=== PATIENT | female | born 1960 | race Caucasian/White ===

== ENCOUNTER → 2017-11-14 | Outpatient (CLI) | payer OTHER | LOC: FIMAGING 10:20 | PROVIDERS: ATTEND Family Medicine | DX: Z12.31 Encounter for screening mammogram for malignant neoplasm of breast (principal); Z80.3 Family history of malignant neoplasm of breast | CPT/HCPCS: G0202 ==

== ENCOUNTER 2018-12-30 11:29 | Day surgery (SDC) | payer OTHER ==
[2018-12-30] MEDS ORDERED: DIAZEPAM 5 MG TAB PO ONE (11:33)
[2018-12-30] MEDS ORDERED: diphenhydrAMINE 25 MG CAP PO ONE (11:33)
[2018-12-30] MEDS ORDERED: NS 1,000 ML IV ONE (11:33)
[2018-12-30] MEDS ORDERED: FAMOTIDINE 20 MG TAB PO ONE (11:33)
[2018-12-30] MEDS ORDERED: ASPIRIN EC 325 MG TAB PO ONE (11:33)
[2018-12-30 12:16] LABS: PLATELET COUNT 159 10^3/uL (150-400)
[2018-12-30 12:26] LABS: INR 1.09 (0.83-1.16); PROTIME(PATIENT) 14.3 SEC (12.0-15.0)
[2018-12-30] MEDS ORDERED: LIDOCAINE 1% 300 MG/30 ML SDV ONE (12:31)
[2018-12-30] MEDS ORDERED: fentaNYL 100 MCG/2 ML INJ ONE (12:32)
[2018-12-30] MEDS ORDERED: MIDAZOLAM 2 MG/2 ML VIAL ONE (12:32)
[2018-12-30] MEDS ORDERED: fentaNYL 100 MCG/2 ML INJ IVP ONE (13:01)
[2018-12-30] MEDS ORDERED: MIDAZOLAM 2 MG/2 ML VIAL IVP ONE (13:01)
[2018-12-30] MEDS ORDERED: BENZOCAINE UNIT DOSE SPRAY HURRICAINE MM ONE (13:01)
[2018-12-30] MEDS ORDERED: ATROPINE SULFATE 1 MG/10 ML SYR ONE (13:14)
--- NOTE | 2018-12-30 13:16 | PDPROPOC ---
Sedation Plan of Care Sedation Plan of Care: vital signs stable, mental status noted, patient educated of risks, benefits, alternatives, patient can tolerate sedation ASA Classification: ASA 2 Planned drugs: fentanyl, midazolam Mallampati Score: Class 1 Mallampati Reference Image: Patient passed 3-3-2 rule?: Yes
--- NOTE | 2018-12-30 13:16 | PDHPUP ---
History & Physical Update H&P update statement: This history and physical update is based on an assessment of the patient which was completed after admission or registration (within 24 hours), but prior to the surgery/procedure. H&P update: H&P reviewed & patient examined, no change in patient's condition since H&P completed
[2018-12-30] MEDS ORDERED: IOPAMIDOL (ISOVUE-370) 150 ML BTL IV ONE (13:19)
[2018-12-30] MEDS ORDERED: VERAPAMIL 5 MG/2 ML VIAL ONE (13:54)
[2018-12-30] MEDS ORDERED: HEPARIN 10,000 UNIT/10 ML MDV (1,000 UNIT/ML) ONE ×2 (13:54→14:03)
--- NOTE | 2018-12-30 14:36 | PDDXCAT ---
Diagnostic Cath Note - . Date: 12/30/18 Pole Shaver: Chance Indication: other (Evaluation for ASD closure) - Procedure Access: right wrist Procedure: left heart catheterization, coronary angiography, left ventriculogram - Materials Left Heart Cath size: 5F Right Heart Cath size: 5F Right Heart Cath materials: PWP catheter - Findings-Left Heart Catheterization LM: Unobstructed LAD: Unobstructed LCX: Unobstructed RCA: Dominant: Unobstructed EDP: 15 mm of mercury LVEF: 65% Wall motion: None - Findings-Right Heart Catheterization RA: 10 mm of mercury RV: 38/5 mm of mercury PA: 38/10 mm of mercury mean of 22 PAOP: 10 mm of mercury CO: 6.99 liters/minute Complications: None Estimated blood loss: <50ml Closure method: TR Band Assessment: Secundum atrial septal defect. Step-up within the right atrium. QP QS 1-1. Angiographically normal coronary arteries. Normal right heart hemodynamics. Normal left ventricular systolic function. Right atrial enlargement. Plan: Clinical follow-up
--- NOTE | 2018-12-30 14:42 | ECHO ---
[email or web address] [address] [address] Main: [phone] Fax: Transesophageal Echocardiography Name: MARLA DIAZ MR#: [id number] Study Date: 12/30/2018 Study Time: 12:48 PM Date of : 1960 Age: 58 year(s) Height: ( ) Weight: ( ) BSA: Gender: Female Examination: OLMAN Indication: Atrial Septal Defect Image Quality: Adequate Contrast: Requested by: Janes Fletcher Heart Rate: Rhythm: BP: / Procedure Staff Outbound Supervisor: Isa Ta RDCS Reading Physician: Janes Fletcher MD Requesting Provider: OLMAN Exam Details Patient Consent: Risks, alternatives of procedure explained to patient, informed consent obtained. Conclusions: Secundum atrial septal defect. Right atrial enlargement. Normal right ventricular systolic function. Measurements: Chambers Valvular Assessment AV/MV Valvular Assessment TV/PV Normal Normal Normal Name Value Range Name Value Range Name Value Range Additional Measurements: Findings: Left Ventricle: Normal size left ventricle. Normal global systolic LV function. Right Ventricle: Normal size right ventricle. Left Atrium: There is a large atrial septal defect visualized with color doppler and 3D imaging. Left Atrial Appendage: No thrombus in left appendage. Right Atrium: Right atrial enlargement. Mitral Valve: Patient: MARLA DIAZ Study Date: 12/30/2018 Page 1 of 2 12:48 PM The mitral valve is normal in appearance and function. Mild mitral valve regurgitation is present. No mitral stenosis is present. Aortic Valve: The aortic valve is tri-leaflet. There is no significant aortic valve regurgitation. No aortic valve stenosis is present. Tricuspid Valve: The tricuspid valve appears normal. Mild tricuspid regurgitation is present. Pulmonic Valve: The pulmonic valve is normal in appearance and function. Pericardium: No pericardial effusion. l1n (No Signature Object) Patient: MARLA DIAZ Study Date: 12/30/2018 Page 2 of 2 12:48 PM [id number]
--- NOTE | 2019-01-01 16:39 | CPEKG ---
Test Reason : OPEN Blood Pressure : / mmHG Vent. Rate : 047 BPM Atrial Rate : 047 BPM P-R Int : 167 ms QRS Dur : 112 ms QT Int : 462 ms P-R-T Axes : 038 045 030 degrees QTc Int : 409 ms Sinus bradycardia Atrial premature complexes in couplets Confirmed by Jackson Cui ([id number]) on 01/01/2019 4:38:49 PM Referred By: DANISHA TERESA Confirmed By:Jackson Cui
== END 2018-12-30 17:44 | disposition home or self-care (01) ==
LOC: FCATH 11:29
PROVIDERS: ATTEND Internal Medicine Interventional Cardiology
DX: Q21.1 Atrial septal defect (principal); I48.91 Unspecified atrial fibrillation; I51.7 Cardiomegaly; E03.9 Hypothyroidism, unspecified; M17.10 Unilateral primary osteoarthritis, unspecified knee; Z79.01 Long term (current) use of anticoagulants; Z79.82 Long term (current) use of aspirin; Z82.49 Family history of ischemic heart disease and other diseases of the circulatory system
CPT/HCPCS: 93005; 93312; 93460; C1769; J0461; J1644; J2250; J3010; Q9967

== ENCOUNTER 2019-02-26 07:03 | Inpatient (IN) | payer OTHER ==
[~2019-02-26 07:03] MED LIST: ADENOSINE 6 MG/2 ML VIAL ONE; ALBUMIN 5% 250 ML BOTTLE IV ONE; AMINOCAPROIC ACID 5 GM/20 ML VIAL IV ONE; AMINOCAPROIC ACID 5 GM/20 ML VIAL ONE; AMIODARONE HCL 150 MG/3 ML VIAL ONE; CALCIUM CHLORIDE 1 GM/10 ML INJ ONE; CARDIOPLEGIC SOLUTION 1,052.8 ML PF ONE; CITRATE DEXTROSE SOLN 500 ML BAG MISC ONE; CITRATE DEXTROSE SOLN 500 ML BAG ONE; DOPamine/DEXTROSE 400 MG/250 ML BAG IV ONE; HEPARIN 10,000 UNIT/10 ML MDV (1,000 UNIT/ML) ONE; INSULIN REGULAR HUMAN 100 UNIT in NS 100 ML IV ONE; LIDOCAINE 1% 2 ML INJ ID PRN; LIDOCAINE 2% 100 MG/5 ML SYR ONE; MAGNESIUM SULFATE 1 GM/2 ML VIAL ONE; MANNITOL 25% 12.5 GM/50 ML VIAL IVP ONE; MILRINONE/DEXTROSE/100 ML BAG IV ONE; NA BICARBONATE 50 MEQ/50 ML VIAL ONE; NITROGLYCERIN/D5W 50 MG/250 ML BOTTLE IV ONE; NOREPINEPHRINE BITARTRATE 16 MG in NS 250 ML IV ONE; PHENYLEPHRINE HCL 50 MG in NS 250 ML IV ONE; PROTAMINE SULFATE 50 MG/5 ML VIAL IVP ONE; SODIUM BICARBONATE 50 MEQ/50 ML SYR ONE; ceFAZolin 1 GM VIAL ONE; ceFAZolin 2 GM/DEXTROSE 100 ML IV ONE; methylPREDNISolone SOD SUCC 1 GM/8 ML VIAL ONE; niCARdipine/NACL 200 ML IV ONE; niCARdipine/NACL/200 ML BAG IV ONE
--- NOTE | 2019-02-26 07:39 | PDGENHP ---
History and Physical - Chief Complaint preop closure ASD and ablation Afib - History of Present Illness 58 yo female with an increasing burden of paroxysmal atrial fibrillation assoc with an aneurysmal atrial septum, large secundum ASD not amenable to percutaneous closure, and right sided chamber enlargement without significant valvular insufficiency or PHTN, admitted for elective OHS. Antithrombotic prophylaxis with Eliquis and Lovenox bridge stopped appropriately. Except for a dry, nagging, cough over the past couple weeks, she has been feeling well. No F/C, malaise, headaches, pharyngitis, nasal congestion/drainage , wt gain, edema, CP, orthopnea, breathlessness, decline in stamina, or presyncope. History Information - Allergies/Home Medication List Allergies/Adverse Reactions: No Known Allergies Allergy (Verified 02/26/19 07:51) Home Medications: Apixaban [Eliquis] 5 mg PO BID 12/23/18 [Last Taken 02/21/19] Cholecalciferol Vit D3 [Vitamin D3 (*)] 1,000 units PO DAILY 12/23/18 [Last Taken 02/21/19] Levothyroxine [Synthroid 125 mcg (*)] 125 mcg PO DAILY06 12/23/18 [Last Taken ] C/E/Zn/Cu/OM3/DHA/EPA/LUT/ZEAX [Preservision Areds 2 Softgel] 1 each PO DAILY [Last Taken 02/21/19] Herbals/Supplements -Info Only 1 ea PO DAILY 02/03/19 [Last Taken 02/21/19] I have personally reviewed and updated: family history, medical history, social history, surgical history - Past Medical History atrial fibrillation (palpitations since Jun 2018; no sustained RVR, underlying rhythm SB, and not on rate control meds) Additional medical history: hypothyroidism - Surgical History Reports: no pertinent surgical hx - Family History Positive for: diabetes type II, CAD Additional family history: sister and father w ASDs, father is s/p repair - Social History Smoking Status: Never smoked Review of Systems Review of Systems: ROS: 10pt was reviewed & negative except for what was stated in HPI & below Cardiac: Reports: irregular heart rate (only perceivable at rest) Gastrointestinal: Reports: other (BM this am) Muscolosketal: Reports: other (endorses "cankles") Physical Exam Physical Exam: Constitutional: no apparent distress, obese, other (delightful) Eyes: anicteric sclera Ears, Nose, Mouth, Throat: moist mucous membranes, hearing normal, other (no visible dental disrepair) Cardiovascular: regular rate and rhythym, pulses symmetric bilaterally, other ( no edema) Peripheral Pulses: 2+: dorsalis-pedis (R), dorsalis-pedis (L) Respiratory: no respiratory distress, clear to auscultation Gastrointestinal: soft, non-tender abdomen Skin: warm, normal color, no rashes or abrasions Psychiatric: interacting appropriately Lab Data & Imaging Review Patient ABO/Rh O POSITIVE 02/24/19 16:05 Antibody Screen NEGATIVE 02/24/19 16:05 H/H 13/40, Plt 162 (baseline 150-200), Cr 0.8, HgbA1c 5.4% Imaging Review: LHC, TTE, OLMAN results Visualized and Interpreted EKG results: Yes EKG Interpretation: Positive for: normal sinsus rhythm (bradycardia) Assessment & Plan Assessment: PAF (paroxysmal atrial fibrillation) (Chronic) Chronic anticoagulation (Chronic) Secundum ASD (Chronic) RA and RV dilatation Mild MR Mild TR Plan: Pericardial patch closure of ASD Bauman-Maze IV Consents per Dr Jimenez
[2019-02-26] MEDS ORDERED: LR 1,000 ML IV ONE (07:46)
[2019-02-26] MEDS ORDERED: MINERAL OIL 10 ML VIAL ONE (08:15)
[2019-02-26] MEDS ORDERED: MIDAZOLAM 2 MG/2 ML VIAL IVP ONE (08:31)
--- NOTE | 2019-02-26 08:31 | PDANEPAE ---
ANE History of Present Illness 58 yo for asd repair / maze ANE Past Medical History - Cardiovascular History Hx Hypertension: No Hx Arrhythmias: Yes Hx Chest Pain: No Hx Coronary Artery / Peripheral Vascular Disease: No Hx CHF / Valvular Disease: No Hx Palpitations: No Cardiovascular History Comment: Afib. left leg vericos vein ligation 2003 - Pulmonary History Hx COPD: No Hx Asthma/Reactive Airway Disease: Yes Hx Recent Upper Respiratory Infection: No Hx Oxygen in Use at Home: No Hx Sleep Apnea: No Sleep Apnea Screening Result - Last Documented: Negative Pulmonary History Comment: asthma as child - Neurologic History Hx Cerebrovascular Accident: No Hx Seizures: No Hx Dementia: No - Endocrine History Hx Diabetes: No - Renal History Hx Renal Disorders: No - Liver History Hx Hepatic Disorders: No - Neurological & Psychiatric Hx Hx Neurological and Psychiatric Disorders: No - Cancer History Hx Cancer: No - Congenital Disorder History Hx Congenital Disorders: Yes Congenital History Comment: ASD in father - GI History Hx Gastrointestinal Disorders: No - Other Health History Other Health History: none - Chronic Pain History Chronic Pain: No - Surgical History Prior Surgeries: cardiac cath last month ANE Review of Systems Review of Systems: - Exercise capacity METS (RN): 5 METS ANE Patient History - Allergies Allergies/Adverse Reactions: No Known Allergies Allergy (Verified 02/26/19 07:51) - Home Medications Home medications: home medication list seen and reviewed Home Medications: Apixaban [Eliquis] 5 mg PO BID 12/23/18 [Last Taken 02/21/19] Cholecalciferol Vit D3 [Vitamin D3 (*)] 1,000 units PO DAILY 12/23/18 [Last Taken 02/21/19] Levothyroxine [Synthroid 125 mcg (*)] 125 mcg PO DAILY06 12/23/18 [Last Taken ] C/E/Zn/Cu/OM3/DHA/EPA/LUT/ZEAX [Preservision Areds 2 Softgel] 1 each PO DAILY [Last Taken 02/21/19] Herbals/Supplements -Info Only 1 ea PO DAILY 02/03/19 [Last Taken 02/21/19] - NPO status NPO Status: no food or drink >8 hours NPO Since - Liquids (Date): 02/26/19 NPO Since - Liquids (Time): 05:30 NPO Since - Solids (Date): 02/25/19 NPO Since - Solids (Time): 21:00 - Smoking Hx Smoking Status: Never smoked - Family Anes Hx Family Hx Anesthesia Complications: none ANE Labs/Vital Signs - Vital Signs Blood Pressure: 121/75 Heart Rate: 55 Respiratory Rate: 16 O2 Sat (%): 97 Height: 5 ft 7 in Weight: 72.575 kg ANE Physical Exam - Airway Neck exam: FROM Mallampati Score: Class 2 Mouth exam: normal dental/mouth exam - Pulmonary Pulmonary: no respiratory distress - Cardiovascular Cardiovascular: regular rate and rhythym - ASA Status ASA Status: III ANE Anesthesia Plan Anesthesia Plan: general endotracheal anesthesia Lines/Monitors: arterial line, central line, OLMAN
[2019-02-26] MEDS: MUPIROCIN 2% 22 GM OINT NS SCH ×3 (08:35→21:04)
[2019-02-26] MEDS ORDERED: fentaNYL 100 MCG/2 ML INJ ONE (08:43)
[2019-02-26] MEDS ORDERED: REMIFENTANIL HCL 1 MG VIAL ONE (08:43)
[2019-02-26] MEDS ORDERED: PROPOFOL/EMULSION 500 MG/50 ML BOTTLE IV ONE (08:43)
[2019-02-26] MEDS ORDERED: ROCURONIUM 100 MG/10 ML VIAL ONE (08:43)
[2019-02-26] MEDS ORDERED: DEXMEDETOMIDINE HCL 400 MCG in NS 100 ML IV SCH (09:00)
[2019-02-26] MEDS ORDERED: SUGAMMADEX SODIUM 200 MG/2 ML VIAL IVP ONE (10:19)
[2019-02-26] MEDS ORDERED: ONDANSETRON 4 MG/2 ML VIAL ONE (10:19)
[2019-02-26] MEDS ORDERED: KETOROLAC 30 MG/1 ML SDV ONE (11:30)
[2019-02-26] MEDS ORDERED: PHENYLEPHRINE HCL 100 MCG/ML SYR ONE (11:44)
[2019-02-26] MEDS ORDERED: ALBUMIN 5% 250 ML BOTTLE IV ONE (11:53)
[2019-02-26] MEDS ORDERED: ACETAMINOPHEN 650 MG SUPP PR PRN (12:14)
[2019-02-26] MEDS ORDERED: niCARdipine/NACL 200 ML IV PRN (12:14)
[2019-02-26] MEDS ORDERED: SODIUM CL NASAL 45 ML BTL EACHNARE PRN (12:14)
[2019-02-26] MEDS ORDERED: PANTOPRAZOLE SODIUM 40 MG VIAL IVP ONE (12:14)
[2019-02-26] MEDS ORDERED: POLYETHYLENE GLYCOL 3350 17 GM PKT PO PRN (12:14)
[2019-02-26] MEDS ORDERED: LACTULOSE 20 GM/30 ML UDCUP PO PRN (12:14)
[2019-02-26] MEDS ORDERED: MEPERIDINE 25 MG/0.5 ML AMP IVP PRN (12:14)
[2019-02-26] MEDS ORDERED: fentaNYL 100 MCG/2 ML INJ IVP PRN (12:14)
[2019-02-26] MEDS ORDERED: CEPACOL LOZENGE PO PRN (12:14)
[2019-02-26] MEDS ORDERED: D50W 25 GM/50 ML SYR IVP PRN (12:14)
[2019-02-26] MEDS ORDERED: MAGNESIUM HYDROXIDE 30 ML UDCUP PO PRN (12:14)
[2019-02-26] MEDS ORDERED: POTASSIUM Cl (KCl) 50 ML IV PRN (12:14)
[2019-02-26] MEDS ORDERED: BISACODYL 10 MG SUPP PR PRN (12:14)
[2019-02-26] MEDS ORDERED: NS 1,000 ML IV SCH (12:15)
[2019-02-26] MEDS ORDERED: INSULIN REGULAR HUMAN 100 UNIT in NS 100 ML IV SCH (12:30)
--- NOTE | 2019-02-26 12:58 | PDMN ---
Medical Necessity Medical necessity: Pt meets inpt criteria per MD order and [facility], Cardiac Septal Defect: Atrial, Repair, [facility] IP only list, 3 days. 58 y/o w/PAF, secundum ASD, RA and RV dilatation, mild MR, and mild TR, op: primary closure of ASD and Bauman-Maze IV, ICU, post-op care. Anticipate>2MN for ongoing treatment of above.
[2019-02-26] MEDS: ALBUMIN 5% 250 ML IV PRN ×2 (13:44→13:53)
[2019-02-26] MEDS ORDERED: traMADol 50 MG TAB PO PRN (14:00)
[2019-02-26] MEDS ORDERED: CALCIUM CHLORIDE 1 GM/10 ML INJ IV ONE (14:30)
[2019-02-26] MEDS ORDERED: ALBUMIN 5% 250 ML IV ONE ×2 (14:30→15:30)
[2019-02-26] MEDS ORDERED: DOPamine/DEXTROSE 400 MG/250 ML BAG IV ONE (14:38)
[2019-02-26] MEDS: ceFAZolin 2 GM/DEXTROSE 100 ML IV SCH ×2 (15:00→21:48)
[2019-02-26] MEDS ORDERED: SODIUM BICARBONATE 50 MEQ/50 ML SYR ONE ×2 (15:12→18:18)
--- NOTE | 2019-02-26 15:22 | GOP ---
[f rep st] OPERATIVE REPORT DATE OF OPERATION: 02/26/2019 SURGEON: Salomon Jimenez DO SPEED BELT SANDER: Delon. ANESTHESIOLOGIST: Dr. Winston. PREOPERATIVE DIAGNOSIS: 1. Atrial septal defect. 2. Longstanding persistent atrial fibrillation. POSTOPERATIVE DIAGNOSIS: 1. Atrial septal defect. 2. Longstanding persistent atrial fibrillation. PROCEDURE PERFORMED: 1. Primary closure of atrial septal defect. 2. Bauman-Maze IV with sensing and testing with radiofrequency and cryo. FINDINGS: DESCRIPTION OF PROCEDURE: Patient was brought to the operating room, intubated and monitoring lines were placed. She was prepped and draped in sterile classical manner. Sternotomy was performed. She was heparinized, cannulated with bicaval cannulae and tapes. We then encircled the right pulmonary vein and performed a radiofrequency ablation with multiple overlapping lines with the last of each se t being less than 5 seconds. We then performed testing to make sure we had entrance and exit block, which was confirmed. We then went on bypass and encircled the left pulmonary vein venous system afte r taking down the ligamentum. I performed 3 overlapping lines in a standard fashion in the antrum wi th pre- and postprocedural testing, which confirmed entrance and exit block, which was not present pr ior to ablation. We then marked the terminus of the left and right coronary systems for cryo across the coronary sinus. We then arrested the heart with antegrade cardioplegia utilizing Del Nido protoc ol. I then opened the tip of the left atrial appendage and performed multiple ablations across the C oumadin ridge into the left superior pulmonary vein to avoid left atrial flutter. A 35 mm atrial cli p was placed across the base of the left atrial appendage, avoiding the circumflex. We then exposed the inner atrial groove on the right side. Opened the left atrium and performed the roof and floor l esions with multiple overlapping ablation lines on the roof and floor lesions connecting with the lef t superior pulmonary vein. We then performed cryoablation externally and internally overlapping thos e lesion sets for 2 minutes each with ice ball noted to form on the inside, extending it across the m itral valve anulus into the isthmus. The left atrium was then closed in standard fashion. Rewarming was begun. We then performed an inferior vertical atriotomy, avoiding the atrial pacing area of the right atrium and performed a superior and inferior vena cava line with radiofrequency extending as f ar inferiorly and superiorly as we could. We then performed the free wall line with radiofrequency a nd the isthmus line after removing the cross-clamp at the end of the procedure. Prior to that, kleber carver I closed the ASD with a continuous running overlapping 4-0 prolene suture in 2 layers. We then r emoved the cross-clamp and in Trendelenburg with suction on the ascending aortic vent performed the i sthmus lesion in the right atrium at 2 o'clock. The right atrium was then closed in a 2-layer fashio n. We spent some time in Trendelenburg, de-airing the patient through the LV apex and the ascending aorta. When no further air was identified, she was easily weaned from bypass. The ASD was confirmed closed on OLMAN. The cannula was removed and oversewn. Two ventricular pacing wires and 2 mediastina l drains were placed. The thymic fat and pericardium were closed. Chest was closed in standard fash ion. Patient was returned to ICU in stable condition. /[id number]/MODL
[2019-02-26] MEDS ORDERED: SODIUM BICARBONATE 50 MEQ/50 ML SYR IV ONE ×2 (15:30→18:30)
--- NOTE | 2019-02-26 16:27 | GCON ---
[f rep st] CONSULTATION PULMONARY/CRITICAL CARE CONSULTATION DATE OF CONSULTATION: 02/26/2019 REFERRING PHYSICIAN: Salomon Jimenez DO REASON FOR REFERRAL: Evaluation and management of hypotension and anemia. HISTORY OF PRESENT ILLNESS: The patient is a 58-year-old woman with a history of paroxysmal atrial f ibrillation with increasing burden recently. She also has a large 2nd ASD that was not amenable to p ercutaneous closure and right-sided chamber enlargement. She is admitted for a Bauman-Maze IV procedure and ASD closure. Her intraoperative course was unremarkable. She was extubated prior to arriving i n the intensive care unit. She reports fairly good pain control but is still quite weak. She has no t taken p.o. or sitting in a chair. PAST MEDICAL HISTORY: Atrial fibrillation. MEDICATIONS: At the time of admission include: Eliquis, Synthroid. ALLERGIES: None. SOCIAL HISTORY: The patient has never smoked. FAMILY HISTORY: Positive for ASDs. REVIEW OF SYSTEMS: A 10-point review of systems adds nothing to the history of present illness. PHYSICAL EXAMINATION: GENERAL: The patient is somnolent but arousable. VITAL SIGNS: Her blood pre ssure is 84/46 with a heart rate of 63. She is afebrile. Oxygen saturations are 100% on 2 L. HEENT : Normocephalic and atraumatic. No icterus. NECK: No JVD. Trachea is midline. CHEST: She is st atus post sternotomy. LUNGS: Clear. CARDIAC: Regular rate and rhythm without murmur. ABDOMEN: S oft, nontender. Bowel sounds are present. EXTREMITIES: No clubbing, cyanosis, or edema. LABORATORY: Hemoglobin 10.5, down from 13.9 preoperatively. A chemistry group shows a potassium of 5.4, up from 3.9 preoperatively. Glucose is 126. Blood gas shows a pH of 7.25 with a pO2 of 128, a CO2 of 48, and a bicarbonate of 22. A chest x-ray shows no acute pulmonary findings, an appropriatel y placed central line and chest tubes. Images reviewed by me. ASSESSMENT: 1. Status post Bauman-Maze IV procedure with atrial septal defect repair. The patient is currently in sinus rhythm, not requiring pacemaker. 2. Hypotension. The patient has hypotension postoperatively. This is likely due to the patient's p legia. She is currently on dopamine at 2 mcg/kg per minute to maintain adequate pressure. 3. Anemia. The patient has anemia likely due to acute blood loss as well as some dilution. Her hem oglobins have been stable the last 2 checks. 4. Hyperkalemia. This is likely due to acidosis. She is not having any arrhythmias currently. 5. Respiratory acidosis. This is likely due to the post anesthesia state. Her CO2 has come down ju st a bit since it was checked earlier today. She is arousable with minimal oxygen needs. RECOMMENDATIONS: 1. Recheck potassium. I expect this will come down as her respiratory status and acidosis improve. 2. Follow telemetry for signs of hyperkalemia. 3. Follow hemoglobin level. 4. Wean dopamine off as tolerated. /[id number]/MODL
--- NOTE | 2019-02-26 16:46 | CPEKG ---
Test Reason : OPEN Blood Pressure : / mmHG Vent. Rate : 074 BPM Atrial Rate : 074 BPM P-R Int : 177 ms QRS Dur : 095 ms QT Int : 420 ms P-R-T Axes : 086 073 077 degrees QTc Int : [address] depression anterior-lateral leads. Confirmed by Marqusie Rangel ([id number]) on 02/26/2019 4:45:53 PM Referred By: Salomon Jimenez Confirmed By:Marquise Rangel
[2019-02-26] MEDS: KETOROLAC 15 MG/1 ML SDV IVP SCH ×2 (18:14→23:59)
[2019-02-26] MEDS ORDERED: ALBUMIN 5% 500 ML BOTTLE IV ONE (18:20)
[2019-02-26] MEDS ORDERED: ALBUMIN 5% 500 ML IV ONE (18:30)
[2019-02-26] MEDS: ONDANSETRON 4 MG/2 ML VIAL IVP PRN (20:42)
[2019-02-26] MEDS: METOCLOPRAMIDE 10 MG/2 ML VIAL IVP PRN (21:12)
[2019-02-27] MEDS: HYDROCODONE/APAP 5/325 TAB PO PRN ×3 (04:04→21:09)
[2019-02-27] MEDS: ONDANSETRON 4 MG/2 ML VIAL IVP PRN (04:05)
[2019-02-27 04:52] LABS: PLATELET COUNT 94 10^3/uL (150-400)
[2019-02-27 05:16] LABS: INR 1.31 (0.83-1.16); PROTIME(PATIENT) 15.7 SEC (12.0-15.0)
[2019-02-27] MEDS: HEPARIN 5,000 UNIT/0.5 ML INJ SC SCH ×3 (05:34→22:16)
[2019-02-27] MEDS: KETOROLAC 15 MG/1 ML SDV IVP SCH ×3 (05:42→18:12)
[2019-02-27] MEDS: LEVOTHYROXINE 125 MCG TAB PO SCH (05:43)
[2019-02-27] MEDS: ceFAZolin 2 GM/DEXTROSE 100 ML IV SCH ×3 (05:44→21:10)
--- NOTE | 2019-02-27 06:53 | SOAPPROG ---
SOAP Progress Note Assessment/Plan: POD #1: primary closure of atrial septal defect, Bauman-Maze IV with AtriClip exclusion of MAHI Atrial septal defect s/p primary closure - Limited TTE to r/o pericardial effusion/evaluate LV (hypotension) - CTs to bulb suction, FC to be removal, AL to remain as Dopamine is weaned off Long-standing persistent paroxysmal atrial fibrillation - Post-op JR, 60-70 - Thromboprophylaxis with Coumadin, INR goal 2-3, duration 3-6 months pending stability of sinus rhythm Acute blood loss anemia - Stable without the need for transfusions DVT prophylaxis - Heparin SQ/SCDs Disposition - ICU status until BP stabilizes Subjective: Pain well-controlled, denies SOB. Objective: Vital Signs Temp Pulse Resp BP Pulse Ox 36.1 C 67 20 95/44 L 97 02/26/19 20:00 02/27/19 06:00 02/27/19 06:00 02/27/19 06:00 02/27/19 06:00 Laboratory Results 02/27/19 04:15 02/27/19 04:15 02/26/19 02/27/19 02/28/19 05:59 05:59 05:59 Intake Total 3620 Output Total 2113 Balance 1507 PT 15.7 SEC (12.0-15.0) H 02/27/19 04:15 INR 1.31 (0.83-1.16) H 02/27/19 04:15 Physical Exam - Physical Exam General Appearance: WD/WN, alert, no apparent distress EENT: No scleral icterus (R), No scleral icterus (L) Neck: normal inspection Respiratory: No respiratory distress Cardiac/Chest: other (JR) Abdomen: non-tender, soft, No distended Skin: normal color, warm/dry Extremities: pedal edema (chronic) Neuro/Psych: no motor/sensory deficits, alert, normal mood/affect, oriented x 3 ICD10 Worksheet Patient Problems: Problems Problem Status Onset Acute blood loss anemia Acute S/P ablation of atrial fibrillation Acute ~02/26/19 s/p primary closure of ASD Acute ~02/26/19 Chronic anticoagulation Chronic PAF (paroxysmal atrial fibrillation) Chronic Secundum ASD Chronic
[2019-02-27] MEDS: PANTOPRAZOLE SODIUM 40 MG TAB PO SCH (09:14)
[2019-02-27] MEDS: MUPIROCIN 2% 22 GM OINT NS SCH ×2 (09:15→21:20)
[2019-02-27] MEDS: ASPIRIN 81 MG CHEWABLE TAB PO SCH (09:15)
--- NOTE | 2019-02-27 11:14 | ASMTCMCOM ---
CM Note CM Note Notes: Patient is POD #1 primary closure of atrial septal defect, Bauman Maze IV. She is normally independent, lives w and has a son nearby. PT/OT ordered. I anticipate an independent discharge, but CM available if this changes. Date Signed: 02/27/2019 11:13 AM Electronically Signed By:Veronica Berry RN
--- NOTE | 2019-02-27 12:29 | CPEKG ---
Test Reason : OPEN Blood Pressure : / mmHG Vent. Rate : 071 BPM Atrial Rate : 000 BPM P-R Int : 148 ms QRS Dur : 081 ms QT Int : 399 ms P-R-T Axes : 095 035 012 degrees QTc Int : 434 ms Normal sinus rhythm Probably first degree AV block. Q waves inferior leads. Confirmed by Marquise Rangel ([id number]) on 02/27/2019 12:28:56 PM Referred By: Salomon Jimenez Confirmed By:Marquise Rangel
--- NOTE | 2019-02-27 14:14 | PDINTPN ---
Employment Supervisor Progress Note Assessment/Plan: Assessment: S/P Bauman-Maze IV and ASD repair 02/26/19 Hypotension: Orthostatic. Persists. On DA @3. Likely due to anesthesia vasoplegia, mild anemia. AF: Now with NSR with paroxysms of AFlutter. Rate OK. Respiratory alkalosis: Resolved. Plan: Continue DA. GIOVANA hose to help with orthostasis. Follow H/H, monitor for AF. Increase activity as tolerated. 02/27/19 14:15 Subjective: Feels okay lying flat. Gets lightheaded when sitting up in a chair or trying to stand. Appetite okay. Pain controlled. Objective: Vital Signs Temp Pulse Resp BP Pulse Ox 37.1 C 65 16 122/56 H 100 02/27/19 13:00 02/27/19 14:00 02/27/19 14:00 02/27/19 14:00 02/27/19 14:00 Laboratory Results 02/27/19 04:15 02/27/19 11:50 02/26/19 02/27/19 02/28/19 05:59 05:59 05:59 Intake Total 3620 Output Total 2113 115 Balance 1507 -115 PT 15.7 SEC (12.0-15.0) H 02/27/19 04:15 INR 1.31 (0.83-1.16) H 02/27/19 04:15 Laboratory Tests 02/26/19 19:51 POC ABG pH 7.34 L POC ABG pCO2 41 H POC ABG pO2 86 H POC ABG Total CO2 24 Physical Exam - Physical Exam General Appearance: alert, no apparent distress EENT: normal ENT inspection Neck: normal inspection Respiratory: lungs clear, normal breath sounds Cardiac/Chest: regular rate, rhythm, No edema Abdomen: non-tender, soft Skin: normal color, warm/dry Extremities: normal inspection Neuro/Psych: alert, normal mood/affect, oriented x 3 ICD10 Worksheet Patient Problems: Problems Problem Status Onset Acute blood loss anemia Acute S/P ablation of atrial fibrillation Acute ~02/26/19 s/p primary closure of ASD Acute ~02/26/19 Chronic anticoagulation Chronic PAF (paroxysmal atrial fibrillation) Chronic Secundum ASD Chronic
[2019-02-27] MEDS: METOCLOPRAMIDE 10 MG/2 ML VIAL IVP PRN (15:36)
[2019-02-27] MEDS: SENNOSIDES/DOCUSATE SODIUM TAB PO SCH (21:09)
[2019-02-28] MEDS: KETOROLAC 15 MG/1 ML SDV IVP SCH ×3 (00:16→11:57)
[2019-02-28] MEDS: HYDROCODONE/APAP 5/325 TAB PO PRN ×4 (01:53→21:18)
[2019-02-28 05:56] LABS: INR 1.21 (0.83-1.16); PROTIME(PATIENT) 14.8 SEC (12.0-15.0)
[2019-02-28] MEDS: LEVOTHYROXINE 125 MCG TAB PO SCH (06:35)
[2019-02-28] MEDS: HEPARIN 5,000 UNIT/0.5 ML INJ SC SCH (06:35)
--- NOTE | 2019-02-28 06:51 | SOAPPROG ---
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 Antithrombotic prophylaxis as per Maze. Non valvular PAF/anticoagulation with Eliquis - Hx underlying bradycardia and not on rate control therapy. Post Maze rhythm junct, SB/SR, and paroxysms of Aflutter w post conversion pauses. ? SSS. Use of antinodals deferred. Consider EP consult if evidence chronotropic incompetence. Antithrombotic prophylaxis with Eliquis. Postoperative orthostatic hypotension - Likely exacerbated by postCPB vasoplegia and hypovolemia. No pericardial effusion identified by bedside echo. Maintained on low dose dopa. Transition to midodrine planned. Acute expected blood loss anemia w thrombocytopenia and mild coagulopathy - Stable. No transfusions required. INR normalizing. Plt count on the rise. VTE prophylaxis with SCDs and Eliquis. Plan: Start midodrine 10 mg TID Wean dopa to SBP > 90 Keep tiff until off dopa Lasix 20 mg IV x 1 Inc mobility PRBC if remains orthostatic Consider removal ant med drain later today Resume Eliquis Possible tx to PCU later today 02/28/19 06:49 Subjective: Comfortable at rest or recumbent. Lightheaded upon standing and has been unable to walk much. Objective: Vital Signs Temp Pulse Resp BP Pulse Ox 36.7 C 62 19 103/52 L 92 02/27/19 15:58 02/28/19 05:00 02/28/19 06:00 02/28/19 06:00 02/28/19 06:00 Laboratory Results 02/28/19 05:30 02/28/19 05:30 02/27/19 02/28/19 03/01/19 05:59 05:59 05:59 Intake Total 3620 2524 Output Total 2113 1035 Balance 1507 1489 PT 14.8 SEC (12.0-15.0) 02/28/19 05:30 INR 1.21 (0.83-1.16) H 02/28/19 05:30 Dopa @ 2.5 mcg. Holding SBP > 90 at rest. HR 60s with bursts of SVT/A flutter. Positive fluid balance. CXR -> tiny left apical PTX, mild left basilar atelectasis. CTOP approaching removal criteria. Platelets rebounding appropriately. Physical Exam - Physical Exam General Appearance: alert, no apparent distress Respiratory: normal breath sounds (excellent insp effort), other (blakes x 2 to bulb suction, serosang drainage) Cardiac/Chest: regular rate, rhythm, other (Sternotomy CDI. Vwires intact.) Abdomen: non-tender, soft Skin: warm/dry Extremities: swelling (trace - 1+ gen) ICD10 Worksheet Patient Problems: Problems Problem Status Onset Acute blood loss anemia Acute S/P ablation of atrial fibrillation Acute ~02/26/19 s/p primary closure of ASD Acute ~02/26/19 Chronic anticoagulation Chronic PAF (paroxysmal atrial fibrillation) Chronic Secundum ASD Chronic
[2019-02-28] MEDS ORDERED: FUROSEMIDE 20 MG/2 ML VIAL IVP ONE (07:48)
[2019-02-28] MEDS: APIXABAN 5 MG TAB PO SCH ×2 (08:18→21:16)
[2019-02-28] MEDS: ASPIRIN 81 MG CHEWABLE TAB PO SCH (08:18)
[2019-02-28] MEDS: MIDODRINE HCL 10 MG TAB PO SCH ×3 (08:18→15:47)
[2019-02-28] MEDS: PANTOPRAZOLE SODIUM 40 MG TAB PO SCH (08:18)
[2019-02-28] MEDS: SENNOSIDES/DOCUSATE SODIUM TAB PO SCH ×2 (08:18→21:17)
--- NOTE | 2019-02-28 09:16 | ECHO ---
[email or web address] [address] [address] Main: [phone] Echocardiography Examination Transthoracic Name: MARLA DIAZ MR#: [id number] Study Date: 02/27/2019 Study Time: 08:28 AM Date of : 1960 Age: 58 year(s) Height: 170.2 cm (67 in.) Weight: 72.58 kg (160 lb.) BSA: 1.84 m2 Gender: Female Examination: Limited Echo Contrast: Image Quality: Adequate Rhythm: Normal sinus rhythm Heart Rate: 63 bpm BP: 73 mmHg/45 mmHg Indication: Acute Hypotension, Post OHS Procedure Staff Referring Physician: Blow Pit Helper: Pierce Paulson RDCS Reading Physician: Jackson Cui MD Requesting Provider: Ordering Physician: Michele Grande Indication: Acute Hypotension, Post OHS Measurements Chambers Label Value Normal Value LVDd, MM 4.6 cm (3.9cm - 5.3cm) LVDs, MM 3.1 cm (2cm - 3.8cm) IVSd, MM 1.4 cm (0.6cm - 0.9cm) LVPWd, MM 1.7 cm (0.6cm - 0.9cm) Conclusions No pericardial effusion was noted. No LV dilation appreciated. Findings Left Ventricle: This is a Stat limited Echo to evaluate for a pericardial effusion, post OHS. From the subcostal view there no evidence of a pericardial effusion. There is normal LV function. Exam Details Procedure Ordered: Limited Echo Procedure Status: Routine study Image Quality: Adequate Patient: MARLA DIAZ Study Date: 02/27/2019 Page 1 of 2 08:28 AM Facility Location: Cardiac Echo 1 (No Signature Object) Patient: MARLA DIAZ Study Date: 02/27/2019 Page 2 of 2 08:28 AM [id number]
[2019-02-28] MEDS: MUPIROCIN 2% 22 GM OINT NS SCH (09:30)
[2019-02-28] MEDS: ONDANSETRON DISINTEGRATING 4 MG TAB PO PRN (13:00)
--- NOTE | 2019-02-28 16:17 | PDINTPN ---
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 Hypotension: Orthostatic. Improved, able to take a walk without dopamine. Likely due to anesthesia vasoplegia, Bauman-Maze, and mild anemia. AF: Now with NSR and signed bradycardia with occasional short pauses. Rate OK. Respiratory alkalosis: Resolved. Anemia: Stable/slightly improved Plan: Continue off DA as tolerated. GIOVANA hose to help with orthostasis. Follow H/ H, monitor for AF. Increase activity as tolerated. 02/28/19 16:17 Subjective: Feels a bit better. She is to call walking feels exhausted but had no presyncope. Pain well controlled. Poor appetite. Objective: Vital Signs Temp Pulse Resp BP Pulse Ox 36.6 C 61 16 91/56 L 97 02/28/19 12:00 02/28/19 14:00 02/28/19 14:00 02/28/19 14:00 02/28/19 14:00 Laboratory Results 02/28/19 05:30 02/28/19 05:30 02/27/19 02/28/19 03/01/19 05:59 05:59 05:59 Intake Total 3620 2524 Output Total 2113 1035 410 Balance 1507 1489 -410 PT 14.8 SEC (12.0-15.0) 02/28/19 05:30 INR 1.21 (0.83-1.16) H 02/28/19 05:30 Physical Exam - Physical Exam General Appearance: alert, no apparent distress EENT: normal ENT inspection Neck: normal inspection Respiratory: lungs clear, normal breath sounds Cardiac/Chest: regular rate, rhythm Abdomen: normal bowel sounds, non-tender, soft Skin: normal color, warm/dry Extremities: non-tender Neuro/Psych: alert, normal mood/affect, oriented x 3 ICD10 Worksheet Patient Problems: Problems Problem Status Onset Acute blood loss anemia Acute S/P ablation of atrial fibrillation Acute ~02/26/19 s/p primary closure of ASD Acute ~02/26/19 Chronic anticoagulation Chronic PAF (paroxysmal atrial fibrillation) Chronic Secundum ASD Chronic
[2019-02-28] MEDS: MELATONIN 3 MG TAB PO SCH (21:16)
[2019-03-01] MEDS: HYDROCODONE/APAP 5/325 TAB PO PRN ×4 (03:05→21:20)
[2019-03-01] MEDS: LEVOTHYROXINE 125 MCG TAB PO SCH (06:07)
--- NOTE | 2019-03-01 07:18 | SOAPPROG ---
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 Antithrombotic prophylaxis as per Maze. Non valvular PAF/anticoagulation with Eliquis - Hx underlying bradycardia and not on rate control therapy. Post Maze rhythm junct, SB/SR, and paroxysms of Aflutter w post conversion pauses. AF prophylaxis with low dose amio in lieu of BB. Antithrombotic prophylaxis with Eliquis. Postoperative orthostatic hypotension - Likely exacerbated by postCPB vasoplegia and hypovolemia. No pericardial effusion identified by bedside echo. Successfully weaned off dopa on midodrine. Care with diuresis. Follow. Acute expected blood loss anemia w thrombocytopenia and mild coagulopathy - Stable. No transfusions required. Plt rebound evident. VTE prophylaxis with SCDs and Eliquis. Plan: Cont midodrine 10 mg TID. Accept SBP > 85. Start amiodarone 200 mg daily. Cont compressive hose during day. Tx 1u PRBC for recurrent orthostasis. Cont inc activity as tolerated. Keep post med drain one more day. Cont Eliquis 5 mg BID. Tx to PCU. 03/01/19 07:14 Subjective: Better. Less dizzy upright. Feels puffy. Objective: Vital Signs Temp Pulse Resp BP Pulse Ox 36.5 C 62 22 H 95/59 L 94 03/01/19 05:00 03/01/19 05:38 03/01/19 05:38 03/01/19 05:38 03/01/19 05:38 Laboratory Results 02/28/19 05:30 03/01/19 05:37 02/28/19 03/01/19 03/02/19 05:59 05:59 05:59 Intake Total 2524 1330 Output Total 1035 1000 Balance 1489 330 PT 14.8 SEC (12.0-15.0) 02/28/19 05:30 INR 1.21 (0.83-1.16) H 02/28/19 05:30 Off dopa yest afternoon. SBPs > 90 overnoc. No further SVT. Off O2. Stable UOP and renal fx. +5 kg by wt. CXR-> no visible PTX, no pulm vasc congestion, mild left basilar atelectasis. Plt cont to climb. Physical Exam - Physical Exam General Appearance: alert, no apparent distress Respiratory: lungs clear (grossly), other (nikki to bulb suction, serosang drainage) Cardiac/Chest: regular rate, rhythm, other (Sternotomy CDI. Vwires intact) Abdomen: non-tender, soft Skin: warm/dry Extremities: swelling (1+ gen) ICD10 Worksheet Patient Problems: Problems Problem Status Onset Acute blood loss anemia Acute S/P ablation of atrial fibrillation Acute ~02/26/19 s/p primary closure of ASD Acute ~02/26/19 Chronic anticoagulation Chronic PAF (paroxysmal atrial fibrillation) Chronic Secundum ASD Chronic
[2019-03-01] MEDS: ONDANSETRON DISINTEGRATING 4 MG TAB PO PRN ×2 (08:08→16:26)
[2019-03-01] MEDS: ASPIRIN 81 MG CHEWABLE TAB PO SCH (08:09)
[2019-03-01] MEDS: PANTOPRAZOLE SODIUM 40 MG TAB PO SCH (08:09)
[2019-03-01] MEDS: PRESERVISION AREDS2 FORMULA EYE VIT 1 EACH PO SCH (08:09)
[2019-03-01] MEDS: APIXABAN 5 MG TAB PO SCH ×2 (08:09→21:36)
[2019-03-01] MEDS: MIDODRINE HCL 10 MG TAB PO SCH ×3 (08:10→16:19)
[2019-03-01] MEDS: SENNOSIDES/DOCUSATE SODIUM TAB PO SCH ×2 (08:10→21:36)
[2019-03-01] MEDS: CHOLECALCIFEROL VIT D3 1,000 UNITS TAB PO SCH (08:10)
[2019-03-01] MEDS: AMIODARONE HCL 200 MG TAB PO SCH (08:44)
[2019-03-01] MEDS: MELATONIN 3 MG TAB PO SCH (21:36)
[2019-03-02] MEDS: HYDROCODONE/APAP 5/325 TAB PO PRN ×4 (01:16→20:02)
[2019-03-02] MEDS ORDERED: CALCIUM CHLORIDE 1 GM/10 ML INJ ONE (06:42)
--- NOTE | 2019-03-02 07:57 | SOAPPROG ---
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 Antithrombotic prophylaxis as per Maze. Non valvular PAF/anticoagulation with Eliquis - Hx underlying bradycardia and not on rate control therapy. Post Maze rhythm predominantly sinus kevin. Paroxysms of Aflutter w post conversion pauses POD#1-2, none since. Low dose amio used for AF prophylaxis in lieu of BB. Antithrombotic prophylaxis with Eliquis. Postoperative orthostatic hypotension - Likely exacerbated by postCPB vasoplegia and hypovolemia. No pericardial effusion identified by bedside echo. Successfully weaned off dopa on midodrine. Active diuresis avoided. HR low when standing or active. Monitor. Consider EP consult for chronotropic incompetence. Acute expected blood loss anemia w thrombocytopenia and mild coagulopathy - Stable s/p 1u PRBC. Plt rebound evident. VTE prophylaxis with SCDs and Eliquis. Plan: Cont midodrine 10 mg TID. Accept SBP > 85. Add florinef 0.1 mg daily. Ck echo for chamber size and ventricular fx. Cont amiodarone 200 mg daily. Cont compressive hose during day. Cont inc activity as tolerated. Keep post med drain one more day. Remove V wires. Cont Eliquis 5 mg BID. 03/02/19 07:56 Subjective: Frustrated that she can't be as active as she'd like d/t lightheadedness. Objective: Vital Signs Temp Pulse Resp BP Pulse Ox 36.5 C 61 18 91/61 L 95 03/02/19 07:08 03/02/19 07:08 03/02/19 07:08 03/02/19 07:08 03/02/19 07:08 Laboratory Results 03/02/19 05:10 03/02/19 05:10 03/01/19 03/02/19 03/03/19 05:59 05:59 05:59 Intake Total 1330 1950 Output Total 1000 1070 Balance 330 880 PT 14.8 SEC (12.0-15.0) 02/28/19 05:30 INR 1.21 (0.83-1.16) H 02/28/19 05:30 Ongoing postural hypotension. Borderline suppl O2 req. Positive fluid balance, +4kg. Adequate UOP. Stable renal fx. CTOP still a bit too high for removal. Physical Exam - Physical Exam General Appearance: alert, no apparent distress Respiratory: lungs clear (grossly) Cardiac/Chest: regular rate, rhythm, other (Sternotomy CDI. Vwires intact.) Abdomen: non-tender, soft Skin: warm/dry Extremities: swelling (1+ gen) ICD10 Worksheet Patient Problems: Problems Problem Status Onset Acute blood loss anemia Acute S/P ablation of atrial fibrillation Acute ~02/26/19 s/p primary closure of ASD Acute ~02/26/19 Chronic anticoagulation Chronic PAF (paroxysmal atrial fibrillation) Chronic Secundum ASD Chronic
[2019-03-02] MEDS: MIDODRINE HCL 10 MG TAB PO SCH ×3 (08:52→16:52)
[2019-03-02] MEDS: AMIODARONE HCL 200 MG TAB PO SCH (08:53)
[2019-03-02] MEDS: PANTOPRAZOLE SODIUM 40 MG TAB PO SCH (08:53)
[2019-03-02] MEDS: APIXABAN 5 MG TAB PO SCH ×2 (08:53→22:35)
[2019-03-02] MEDS: CHOLECALCIFEROL VIT D3 1,000 UNITS TAB PO SCH (08:53)
[2019-03-02] MEDS: PRESERVISION AREDS2 FORMULA EYE VIT 1 EACH PO SCH (08:53)
--- NOTE | 2019-03-02 09:39 | ASMTCMCOM ---
CM Note CM Note Notes: 03/02/2019 Case Management Note Reviewed chart. PT note indicates outpatient rehab. OT note indicates home. There are no identified case management d/c needs. Pt has supportive family. Case Management d/c poc: independent with follow up as directed. Case Management available if needs change Date Signed: 03/02/2019 09:39 AM Electronically Signed By:Mendy Ramachandran RN
[2019-03-02] MEDS: SENNOSIDES/DOCUSATE SODIUM TAB PO SCH ×2 (10:41→22:35)
[2019-03-02] MEDS: LEVOTHYROXINE 125 MCG TAB PO SCH (10:41)
[2019-03-02] MEDS: FLUDROCORTISONE ACETATE 0.1 MG TAB PO SCH (10:41)
--- NOTE | 2019-03-02 12:56 | ECHO ---
[email or web address] [address] [address] Main: [phone] Echocardiography Examination Transthoracic Name: MARLA DIAZ MR#: [id number] Study Date: 03/02/2019 Study Time: 11:58 AM Date of : 1960 Age: 58 year(s) Height: 170.2 cm (67 in.) Weight: 77.57 kg (171 lb.) BSA: 1.89 m2 Gender: Female Examination: Echo Contrast: Image Quality: Good Rhythm: Normal sinus rhythm Heart Rate: 62 bpm BP: 90 mmHg/62 mmHg Indication: Post ASD closure, Maze, Hypotension Procedure Staff Referring Physician: Prepress Manager: Pierce Paulson RDCS Reading Physician: Yong Carpenter MD Requesting Provider: Indication: Post ASD closure, Maze, Hypotension Measurements Chambers AV/MV Label Value Normal Value Label Value Normal Value LVOT Vmax 0.62 m/s (0.7m/s - 1.1m/s) MV E Vmax 0.67 m/s LVOTd 1.9 cm (1.8cm - 2cm) MV E/E' lateral 7 LVOT PGmax 2 mmHg MV E/E' septal 7.9 (0.5 - 1.7) LVDd, 2D 4.1 cm (3.9cm - 5.3cm) MV E' septal 0.08 m/s LVDs, 2D 3 cm (2.1cm - 4cm) MV E' lateral 0.1 m/s IVSd, 2D 0.7 cm (0.6cm - 1.1cm) MV E/E' mean 7.44 LVPWd, 2D 0.9 cm MV E' mean 0.09 m/s LVEF, BP 58 % (55% - 70%) TV/PV LVEF, 2D 54 % (54% - 74%) Label Value Normal Value LVOT PGmean 1 mmHg RA Pressure 5 mmHg LVOT Vmean 0.41 m/s RVSP 41 mmHg RVDd, 2D 4 cm (1.9cm - 3.8cm) TR Pmax 36 mmHg TAPSE 1.1 cm TR Vmax 3.02 m/s LA Volume, BP 45 ml (22ml - 52ml) PV PGmax 2 mmHg LADs, 2D 3.4 cm (2.7cm - 3.8cm) PV Vmax, Caliper 0.73 m/s (0.6m/s - 0.9m/s) LAESV index, BP 23.8 ml/m2 Additional Vessels Label Value Normal Value AoRoot, MM 2.8 cm (2.2cm - 3.7cm) Patient: MARLA DIAZ Study Date: 03/02/2019 Page 1 of 3 11:58 AM Conclusions Left Ventricle: Normal global systolic left ventricular function. The EF is visually estimated to be 60 %. Cannot determine LAP and Diastolic Dysfunction Grade. Right Ventricle: Upper normal size right ventricle. Right ventricular systolic function is mildly reduced. Tricuspid Valve: Moderate to severe tricuspid regurgitation. Right Ventricular systolic pressure is measured at 41 mmHg. Pericardium: There is a large left pleural effusion. Subcostal views are unavailble due to chest tubes. Findings Left Ventricle: Left ventricle is normal in size. Normal global systolic left ventricular function. The EF is visually estimated to be 60 %. EF range is estimated at 55 % - 60 %. There are no regional wall motion abnormalities. Cannot determine LAP and Diastolic Dysfunction Grade. Right Ventricle: Upper normal size right ventricle. Right ventricular systolic function is mildly reduced. Left Atrium: There is no obvious colorflow across the interatrial septum.. The left atrium is normal in size. Right Atrium: The right atrium is normal in size. Mitral Valve: Mitral valve appears structurally normal. Trivial mitral regurgitation. No mitral valve stenosis. Aortic Valve: Aortic leaflets are normal in appearance and function. No aortic valve regurgitation. There is no aortic stenosis. Tricuspid Valve: Tricuspid valve leaflets are structurally normal. Moderate to severe tricuspid regurgitation. Right Ventricular systolic pressure is measured at 41 mmHg. Pulmonary artery pressure is mildly increased. Pulmonic Valve: Pulmonic leaflets are normal in appearance and function. No pulmonic valve regurgitation is evident. Aorta: The aorta is normal. The aortic root size in M-mode measures 2.8 cm. Aorta Measurements AoRoot, MM is 2.8 cm. IVC: The inferior vena cava is poorly visualized. Pericardium: No pericardial effusion. There is a large left pleural effusion. Subcostal views are unavailble due to chest tubes. Exam Details Procedure Ordered: Echo Image Quality: Good Patient: MARLA DIAZ Study Date: 03/02/2019 Page 2 of 3 11:58 AM (No Signature Object) Patient: MARLA DIAZ Study Date: 03/02/2019 Page 3 of 3 11:58 AM [id number]
[2019-03-02] MEDS ORDERED: FUROSEMIDE 20 MG/2 ML VIAL IVP ONE (18:32)
[2019-03-02] MEDS ORDERED: FUROSEMIDE 40 MG/4 ML VIAL IVP ONE (22:09)
[2019-03-02] MEDS: MELATONIN 3 MG TAB PO SCH (22:36)
[2019-03-03] MEDS: HYDROCODONE/APAP 5/325 TAB PO PRN ×2 (05:40→20:00)
[2019-03-03] MEDS: LEVOTHYROXINE 125 MCG TAB PO SCH (05:41)
[2019-03-03] MEDS ORDERED: FUROSEMIDE 40 MG/4 ML VIAL IVP ONE (06:58)
--- NOTE | 2019-03-03 07:07 | SOAPPROG ---
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 Antithrombotic prophylaxis as per Maze. Non valvular PAF/anticoagulation with Eliquis - Hx underlying bradycardia and not on rate control therapy. Post Maze rhythm predominantly sinus kevin. Paroxysms of Aflutter w post conversion pauses POD#1-2, none since. Low dose amio used for AF prophylaxis in lieu of BB. TCPWs out. Antithrombotic prophylaxis with Eliquis. Postoperative orthostatic hypotension - Likely exacerbated by postCPB vasoplegia and hypovolemia. Successfully weaned off dopa on midodrine. Florinef added for refractory sx. No pericardial effusion or sig ventricular dysfx identified by serial echos. Rt chamber dilatation and mild RVSD unchanged from preop. Sufficient BP for active diuresis. HR low when standing or active. Monitor. EP involvement if overt chronotropic incompetence. Acute expected blood loss anemia w thrombocytopenia and mild coagulopathy - Stable s/p 1u PRBC. Plt rebound evident. VTE prophylaxis with SCDs and Eliquis. Plan: Remove post med drain. Cont midodrine 10 mg TID. Accept SBP > 85. Cont IV diuresis. Hold florinef. Cont amiodarone 200 mg daily. Cont compressive hose during day. Cont inc activity as tolerated. Cont Eliquis 5 mg BID. 03/03/19 06:58 Subjective: Improving tolerance of upright position. Easily sated with minimal food/tight in midsection, but hands and legs no longer feel swollen. Objective: Vital Signs Temp Pulse Resp BP Pulse Ox 36.7 C 66 17 83/57 L 94 03/03/19 05:11 03/03/19 05:11 03/03/19 05:11 03/03/19 05:11 03/03/19 05:11 Laboratory Results 03/02/19 05:10 03/02/19 03/03/19 03/04/19 05:59 05:59 05:59 Intake Total 1950 1780 Output Total 1070 3040 Balance 880 -1260 PT 14.8 SEC (12.0-15.0) 02/28/19 05:30 INR 1.21 (0.83-1.16) H 02/28/19 05:30 Echo c/w RV overload and started on lasix last pm with good response. Holding SR. Off O2 during day. CTOP at removal criteria. CXR-> small left pleural effusion. Physical Exam - Physical Exam General Appearance: alert, no apparent distress Respiratory: lungs clear (grossly), other (nikki to bulb suction, thin serosang drainage) Cardiac/Chest: regular rate, rhythm, other (Sternotomy CDI) Abdomen: non-tender, soft Skin: warm/dry Extremities: other (no visible limb edema) ICD10 Worksheet Patient Problems: Problems Problem Status Onset Acute blood loss anemia Acute S/P ablation of atrial fibrillation Acute ~02/26/19 s/p primary closure of ASD Acute ~02/26/19 Chronic anticoagulation Chronic PAF (paroxysmal atrial fibrillation) Chronic Secundum ASD Chronic
[2019-03-03] MEDS: MIDODRINE HCL 10 MG TAB PO SCH ×3 (07:51→16:04)
[2019-03-03] MEDS: APIXABAN 5 MG TAB PO SCH ×2 (08:04→20:02)
[2019-03-03] MEDS: SENNOSIDES/DOCUSATE SODIUM TAB PO SCH ×2 (08:04→20:03)
[2019-03-03] MEDS: AMIODARONE HCL 200 MG TAB PO SCH (08:05)
[2019-03-03] MEDS: PANTOPRAZOLE SODIUM 40 MG TAB PO SCH (08:05)
[2019-03-03] MEDS: CHOLECALCIFEROL VIT D3 1,000 UNITS TAB PO SCH (08:05)
[2019-03-03] MEDS: PRESERVISION AREDS2 FORMULA EYE VIT 1 EACH PO SCH (08:05)
[2019-03-03] MEDS: FLUDROCORTISONE ACETATE 0.1 MG TAB PO SCH (08:05)
[2019-03-03] MEDS: MELATONIN 3 MG TAB PO SCH (20:03)
[2019-03-04] MEDS: HYDROCODONE/APAP 5/325 TAB PO PRN (00:55)
[2019-03-04] MEDS: LEVOTHYROXINE 125 MCG TAB PO SCH (06:05)
--- NOTE | 2019-03-04 07:42 | SOAPPROG ---
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 Antithrombotic prophylaxis as per Maze. Non valvular PAF/anticoagulation with Eliquis - Hx underlying bradycardia and not on rate control therapy. Post Maze rhythm predominantly sinus kevin. Paroxysms of Aflutter w post conversion pauses POD#1-2, none since. Low dose amio used for AF prophylaxis in lieu of BB. TCPWs and chest tubes out. Antithrombotic prophylaxis with Eliquis. Postoperative orthostatic hypotension - Likely exacerbated by postCPB vasoplegia and hypovolemia. Successfully weaned off dopa on midodrine. Florinef added for refractory sx. No pericardial effusion or sig ventricular dysfx identified by serial echos. Rt chamber dilatation and mild RVSD unchanged from preop. Sufficient BP for active diuresis. HR low when standing or active. Monitor. EP involvement if overt chronotropic incompetence. Acute expected blood loss anemia w thrombocytopenia and mild coagulopathy - Stable s/p 1u PRBC. Plt rebound evident. VTE prophylaxis with SCDs and Eliquis. Plan: Cont midodrine 10 mg TID. Accept SBP > 85. Cont IV diuresis. Hold florinef. Cont amiodarone 200 mg daily. Cont compressive hose during day. Cont inc activity as tolerated. Cont Eliquis 5 mg BID. Dispo - Home this afternoon vs tomorrow 03/04/19 07:41 Subjective: Improving stamina and mobility. 2 laps around the [place] this am well tolerated. Objective: Vital Signs Temp Pulse Resp BP Pulse Ox 36.8 C 65 14 97/62 L 94 03/04/19 07:20 03/04/19 07:20 03/04/19 07:20 03/04/19 07:20 03/04/19 07:20 Laboratory Results 03/02/19 05:10 03/04/19 03:15 03/03/19 03/04/19 03/05/19 05:59 05:59 05:59 Intake Total 1780 700 Output Total 3135 1200 Balance -1355 -500 PT 14.8 SEC (12.0-15.0) 02/28/19 05:30 INR 1.21 (0.83-1.16) H 02/28/19 05:30 VSS Improving fluid balance Borderline suppl O2 req Physical Exam - Physical Exam General Appearance: alert, no apparent distress Respiratory: lungs clear (grossly) Cardiac/Chest: regular rate, rhythm, other (Sternotomy and chest tube dressing CDI. ) Abdomen: non-tender, soft Skin: warm/dry Extremities: other (no visible edema) ICD10 Worksheet Patient Problems: Problems Problem Status Onset Acute blood loss anemia Acute S/P ablation of atrial fibrillation Acute ~02/26/19 s/p primary closure of ASD Acute ~02/26/19 Chronic anticoagulation Chronic PAF (paroxysmal atrial fibrillation) Chronic Secundum ASD Chronic
[2019-03-04] MEDS: MIDODRINE HCL 10 MG TAB PO SCH ×3 (07:56→15:41)
[2019-03-04] MEDS ORDERED: FUROSEMIDE 20 MG/2 ML VIAL IVP ONE (09:00)
[2019-03-04] MEDS ORDERED: POTASSIUM CL 20 MEQ TAB PO ONE (09:00)
[2019-03-04] MEDS: SENNOSIDES/DOCUSATE SODIUM TAB PO SCH ×2 (09:17→22:38)
[2019-03-04] MEDS: PRESERVISION AREDS2 FORMULA EYE VIT 1 EACH PO SCH (09:17)
[2019-03-04] MEDS: APIXABAN 5 MG TAB PO SCH ×2 (09:18→22:39)
[2019-03-04] MEDS: PANTOPRAZOLE SODIUM 40 MG TAB PO SCH (09:18)
[2019-03-04] MEDS: AMIODARONE HCL 200 MG TAB PO SCH (09:18)
[2019-03-04] MEDS: CHOLECALCIFEROL VIT D3 1,000 UNITS TAB PO SCH (09:18)
[2019-03-04] MEDS: ACETAMINOPHEN 325 MG TAB PO PRN (15:41)
[2019-03-04] MEDS: MELATONIN 3 MG TAB PO SCH (22:39)
[2019-03-05] MEDS: ACETAMINOPHEN 325 MG TAB PO PRN ×2 (05:43→10:08)
[2019-03-05] MEDS: LEVOTHYROXINE 125 MCG TAB PO SCH (05:44)
--- NOTE | 2019-03-05 07:36 | SOAPPROG ---
SOAP Progress Note Assessment/Plan: POD #7: primary closure of atrial septal defect, Bauman-Maze IV with AtriClip exclusion of MAHI Atrial septal defect s/p primary closure - Stable Long-standing persistent paroxysmal atrial fibrillation, non-valvular, s/p Bauman- Maze - Post-op SR, possible JR - will check 12-lead EKG this AM - Amiodarone started for AF prophylaxis, beta-spenser avoided d/t hypotension - Thromboprophylaxis with Eliquis as per pre-op, duration 3-6 months as per protocol pending stability rhythm Acute post-op blood loss anemia - Stable s/p 1U PRBC Postoperative orthostatic hypotension - No pericardial effusion or sig ventricular dysfx identified, Rt chamber dilatation and mild RVSD unchanged from preop - Likely exacerbated by post CPB vasoplegia - Continue Midodrine and Florinef DVT prophylaxis DVT prohylaxis - Eliquis/SCDs Disposition - Home today Subjective: Has some light-headedness when walking distances > 60 yards which resolves when resting. Denies syncope. Pain well-controlled. Abdomen feels full. Objective: Vital Signs Temp Pulse Resp BP Pulse Ox 37.1 C 64 16 87/57 L 93 03/05/19 04:00 03/05/19 04:00 03/05/19 04:00 03/05/19 04:00 03/05/19 04:00 Laboratory Results 03/02/19 05:10 03/05/19 05:35 03/04/19 03/05/19 03/06/19 05:59 05:59 05:59 Intake Total 700 2000 Output Total 1200 1950 Balance -500 50 PT 14.8 SEC (12.0-15.0) 02/28/19 05:30 INR 1.21 (0.83-1.16) H 02/28/19 05:30 Physical Exam - Physical Exam General Appearance: WD/WN, alert, no apparent distress EENT: No scleral icterus (R), No scleral icterus (L) Neck: normal inspection Respiratory: No respiratory distress Cardiac/Chest: regular rate, rhythm, other (?JR) Abdomen: non-tender, soft, distended Skin: normal color, warm/dry Extremities: pedal edema Neuro/Psych: no motor/sensory deficits, alert, normal mood/affect, oriented x 3 ICD10 Worksheet Patient Problems: Problems Problem Status Onset Acute blood loss anemia Acute S/P ablation of atrial fibrillation Acute ~02/26/19 s/p primary closure of ASD Acute ~02/26/19 Chronic anticoagulation Chronic PAF (paroxysmal atrial fibrillation) Chronic Secundum ASD Chronic
[2019-03-05] MEDS: PRESERVISION AREDS2 FORMULA EYE VIT 1 EACH PO SCH (08:15)
[2019-03-05] MEDS: SENNOSIDES/DOCUSATE SODIUM TAB PO SCH (08:15)
[2019-03-05] MEDS: MIDODRINE HCL 10 MG TAB PO SCH ×2 (08:15→12:02)
[2019-03-05] MEDS: APIXABAN 5 MG TAB PO SCH (08:15)
[2019-03-05] MEDS: PANTOPRAZOLE SODIUM 40 MG TAB PO SCH (08:15)
[2019-03-05] MEDS: CHOLECALCIFEROL VIT D3 1,000 UNITS TAB PO SCH (08:16)
[2019-03-05] MEDS: AMIODARONE HCL 200 MG TAB PO SCH (08:16)
[2019-03-05] MEDS ORDERED: FLUDROCORTISONE ACETATE 0.1 MG TAB PO SCH (09:15)
[2019-03-05] MEDS ORDERED: FUROSEMIDE 40 MG TAB PO ONE (09:39)
[2019-03-05] MEDS ORDERED: POTASSIUM CL 20 MEQ TAB PO SCH (09:45)
--- NOTE | 2019-03-05 10:27 | PDDCSUM ---
Discharge Summary Discharge Summary: ADMISSION DATE: 02/26/19 DISCHARGE DATE: 03/05/19 ADMISSION DIAGNOSES 1. Atrial septal defect 2. Long standing persistent atrial fibrillation DISCHARGE DIAGNOSES 3. As above 4. Acute post-op blood loss anemia 5. Postoperative orthostatic hypotension PROCEDURES 02/26/19 (Barbara): primary closure of atrial septal defect, Bauman-Maze IV with AtriClip exclusion of MAHI HPI 58F with h/o ASD and LSPAF admitted electively for OHS. HOSPITAL COURSE BY PROBLEM LIST 1. Atrial septal defect - stable s/p primary closure. Surveillance as per cardiology. 2. Long standing persistent atrial fibrillation - s/p Bauman-Maze IV. Post-op SR in the 60s. Amiodarone started for AF prophylaxis and beta-spenser avoided d/t hypotension. Thromboprophylaxis with Eliquis as per pre-op, duration 3-6 months as per protocol. 3. Acute post-op blood loss anemia - stable s/p 1 unit PRBC. 4. Postoperative orthostatic hypotension - no pericardial effusion or significant ventricular dysfunction identified. Right chamber dilatation and mild RVSD unchanged from pre-op. Midodrine and Fludrocortisone started with an increase in BP. Plans to wean medications as an outpatient. CONDITION Good DISPOSITION Home, self-care PERTINENT DISCHARGE CLINICAL INFORMATION Vitals: SBP 106, 76 SR, 94% on RA, +4kg Exam: NAD, SR, No respiratory distress, ND, soft, NTP, BLE with stable chronic edema ACTIVITY Pt was instructed on activity limitations and which problems to call [facility] with. Please see Discharge Plan in chart for specifics. DISCHARGE MEDICATIONS As per Home Medication List in [facility] PENDING STUDIES/LABS 1. CXR prior to surgical follow-up FOLLOW-UP 1. Salomon Jimenez (CT Surgery), 03/11/19, 9:30 AM 2. Sb Carranza (cardiology, to be arranged at surgical f/u
[2019-03-05 10:33] VITALS: BP 80/55
--- NOTE | 2019-03-06 16:25 | POSTANESTH ---
Post Anesthetic Evaluation Cardiovascular Status: Normal, Stable Respiratory Status: Normal, Stable Level of Consciousness/Mental Status: Can Participate in Eval Pain Control: Adequate, Prn Tx Ordered Nausea/Vomiting Control: Adequate, Prn Tx Ordered Complications Possibly Related to Anesthesia: None Noted (pt discharged)
--- NOTE | 2019-03-06 19:33 | CPEKG ---
Test Reason : OPEN Blood Pressure : / mmHG Vent. Rate : 062 BPM Atrial Rate : 062 BPM P-R Int : 133 ms QRS Dur : 093 ms QT Int : 490 ms P-R-T Axes : 090 067 054 degrees QTc Int : 498 ms Sinus rhythm Borderline prolonged QT interval Confirmed by Janes Fletcher ([id number]) on 03/06/2019 7:33:13 PM Referred By: Salomon Jimenez Confirmed By:Janes Fletcher
== END 2019-03-05 14:07 | disposition home or self-care (01) | DRG 229 ==
LOC: F2W 07:03 → F2N 07:36 → F2W 03-01 13:50
PROVIDERS: ADMIT Thoracic Surgery (Cardiothoracic Vascular Surgery); ATTEND Thoracic Surgery (Cardiothoracic Vascular Surgery)
PROC: 02Q50ZZ Repair Atrial Septum, Open Approach (ICD-10-PCS; principal; 2019-02-26 08:45)
PROC: 02580ZZ Destruction of Conduction Mechanism, Open Approach (ICD-10-PCS; principal; 2019-02-26 08:45)
PROC: 5A1221Z Performance of Cardiac Output, Continuous (ICD-10-PCS; principal; 2019-02-26 08:45)
PROC: 02L70CK Occlusion of Left Atrial Appendage with Extraluminal Device, Open Approach (ICD-10-PCS; principal; 2019-02-26 08:45)
PROC: 025T0ZZ Destruction of Left Pulmonary Vein, Open Approach (ICD-10-PCS; principal; 2019-02-26 08:45)
PROC: 025S0ZZ Destruction of Right Pulmonary Vein, Open Approach (ICD-10-PCS; principal; 2019-02-26 08:45)
PROC: 30233N1 Transfusion of Nonautologous Red Blood Cells into Peripheral Vein, Percutaneous Approach (ICD-10-PCS; 2019-03-01)
DX: Q21.1 Atrial septal defect (principal); I48.1 Persistent atrial fibrillation; D62 Acute posthemorrhagic anemia; I95.81 Postprocedural hypotension; E03.9 Hypothyroidism, unspecified; Z79.01 Long term (current) use of anticoagulants
CPT/HCPCS: 82435-PO; 82565-PO; 82947-PO; 83605-ER; 84132-PO; 84295-PO; 84520-PO; 85014-ER; 97110-GP; 97116-GP; 97161-GP; 97165-GO; 97530-GO; 97530-GP; 97535-GO; J0153; J0282; J0690; J1265; J1644; J1815; J1885; J1940; J2001; J2150; J2250; J2260; J2270; J2370; J2405; J2704; J2720; J2765; J2930; J3010; J3475; J3480; P9016; P9021; P9041

== ENCOUNTER → 2019-03-11 | Outpatient (CLI) | payer OTHER | LOC: FIMAGING 08:43 | PROVIDERS: ATTEND Thoracic Surgery (Cardiothoracic Vascular Surgery) | DX: Z09 Encounter for follow-up examination after completed treatment for conditions other than malignant neoplasm (principal); J90 Pleural effusion, not elsewhere classified; J98.11 Atelectasis; Z98.890 Other specified postprocedural states; Z86.79 Personal history of other diseases of the circulatory system ==

== ENCOUNTER → 2019-03-31 | Outpatient (CLI) | payer OTHER | LOC: CIMAGING 13:02 | PROVIDERS: ATTEND Thoracic Surgery (Cardiothoracic Vascular Surgery) | DX: Z86.79 Personal history of other diseases of the circulatory system (principal); Z87.74 Personal history of (corrected) congenital malformations of heart and circulatory system; Z98.890 Other specified postprocedural states | CPT/HCPCS: 71046-PO ==